=== PATIENT | female | born 1975 | race Hispanic/Latino ===

== ENCOUNTER → 2017-03-09 | Day surgery (SDC) | payer SELFPAY ==
[~2017-03-09] VITALS: Ht 162.6 cm; Wt 74.8 kg
--- NOTE | 2017-03-09 14:58 | Operative Report ---
Operative/Inv Procedure Report Surgery Date: 03/09/17 Name of Procedure: Abdominoplasty Pre-Operative Diagnosis: Truncal lipodystrophy Post-Operative Diagnosis: Same Estimated Blood Loss: scant (200) Surgeon/Tomb Maker Helper: KEE HOPKINS MD Anesthesia: general endotracheal tube Operative/Procedure Note Note: Patient was counseled regards the procedure the alternatives the risks and expected outcomes as relates to request for surgical intervention to treat abdominal lipodystrophy. She was given and a SPS informed consent which she return sign has no further questions. The measuring tape and shown the areas of would be treated those that would not. She was then brought after signing informed consent she was brought to the operating placed supine on the table. Venodyne boots are placed and general endotracheal anesthesia was established intravenous antibiotics were given. The umbilicus was freed from the abdominal flap. The lower incision was developed along the abdominal fascia and divided superiorly. She was put in the semi-Szymanski's position in a 3 layer closure was carried out over 2 drains after a 2 layer with nonabsorbable plication from xiphoid to pubis of the diastases. Ends dictation
== END ==
LOC: STS 01:31
DX: Z41.1 Encounter for cosmetic surgery (principal); E65 Localized adiposity
CPT/HCPCS: 88302; J0131; J0690; J2250